=== PATIENT | female | born 1970 | race Caucasian/White ===

== ENCOUNTER 2017-04-02 16:05 | Emergency (ER) | payer OTHER ==
--- NOTE | 2017-04-02 16:39 | EDM.PDOC ---
ED HPI GENERAL MEDICAL PROBLEM - General Chief Complaint: Headache Stated Complaint: MIGRAINE Time Seen by Provider: 04/02/17 16:39 Source of Information: Reports: Patient History Limitations: Reports: No Limitations - History of Present Illness INITIAL COMMENTS - FREE TEXT/NARRATIVE: 46-year-old female presents to the ED in a complement of her with a severe occipital headache. Associated nausea without vomiting. Has had intermittent visual acuity symptoms for the last 2 days with sometimes loss of peripheral vision and scotomata. Headache started more today. Associated nausea without vomiting. She is prone to migraines. She has no trouble walking. She does not feel her balance is off. Denies any recent falls or hits in the head. She was ill over the last week to 10 days with what sounds like influenza for due to high fever headache loss of appetite and paroxysmal cough. She continues to cough at this time. She states it's nonproductive. Has some chills but no further fever. Appetite has been fair up until today. Onset: Gradual Onset Date: 04/01/17 (Headache started overnight.) Duration: Day(s):, Waxing/Waning Location: Reports: Head (Headache primarily occipital skull.), Neck Quality: Reports: Ache, Throbbing Severity: Moderate Improves with: Reports: None, Rest Worsens with: Reports: Other, Movement Context: Reports: Sick Contact ( was ill with influenza.). Denies: Activity (Coughing), Exercise, Lifting, Trauma Associated Symptoms: Reports: Cough, Fever/Chills, Headaches, Malaise ( Nonproductive), Nausea/Vomiting (Nausea without vomiting today with this). Denies: Confusion, Chest Pain, cough w sputum, Diaphoresis (Cold or chills at times with no fever), Loss of Appetite, Rash ( severity of headache), Seizure, Shortness of Breath, Syncope Treatments DIRECTOR MICROBIOLOGY: Reports: Other (see below) (None.) Headache Pain Score (Numeric/FACES): 5 - Related Data Allergies Allergy/AdvReac Type Severity Reaction Status Date / Time metoclopramide [From Reglan] Allergy Other Verified 04/02/17 18:01 sulfacetamide Allergy Respiratory Verified 02/09/17 07:46 Distress levofloxacin AdvReac Other Verified 02/09/17 07:45 Home Meds: Home Meds Albuterol Sulfate 1 applic INH TID 04/02/17 [History] Budesonide [Pulmicort] 1 applic INH DAILY 04/02/17 [History] Cefdinir [Omnicef] 300 mg PO BID 04/02/17 [History] Cetirizine [ZyrTEC] 10 mg PO BEDTIME 04/02/17 [History] Fluticasone Propionate [Flovent] 1 puff INH BID 04/02/17 [History] Montelukast [Singulair] 10 mg PO BEDTIME 04/02/17 [History] Ondansetron HCl [Zofran] 4 mg PO Q8H PRN 04/02/17 [History] SUMAtriptan [Imitrex] 50 mg PO ASDIRECTED PRN 04/02/17 [History] Verapamil [Calan] 120 mg PO BEDTIME 04/02/17 [History] Past Medical History HEENT History: Reports: Other (See Below) Other HEENT History: several sinus surgeries and tube in left ear for drainage Respiratory History: Reports: Asthma, Bronchitis, Recurrent, Other (See Below) Other Respiratory History: seasonal allergies; sinus infection at present on Neurological History: Reports: Migraines - Past Surgical History GI Surgical History: Reports: Cholecystectomy, Other (See Below) Other GI Surgeries/Procedures: hiatal hernia repair Female Surgical History: Reports: Hysterectomy Social & Family History - Tobacco Use Smoking Status *Q: Never Smoker - Caffeine Use Caffeine Use: Reports: None - Recreational Drug Use Recreational Drug Use: No - Living Situation & Occupation Living situation: Reports: Occupation: Employed ED ROS GENERAL - Review of Systems Review Of Systems: See Below Constitutional: Reports: Chills, Malaise, Weakness, Fatigue, Decreased Appetite , Weight Loss. Denies: Fever HEENT: Reports: Contact Lenses, Sinus Problem (Currently on Ceftin ear twice daily for the last 2 days for sinus infection.) Respiratory: Reports: Cough. Denies: Shortness of Breath (Mostly nonproductive. ), Wheezing (Has been using her inhaler 3 times daily.) Cardiovascular: Reports: No Symptoms Endocrine: Reports: Fatigue GI/Abdominal: Reports: Decreased Appetite, Nausea. Denies: Vomiting : Reports: No Symptoms Musculoskeletal: Reports: Neck Pain Skin: Reports: No Symptoms Neurological: Reports: Headache, Other (Visual disturbances were time she will see only half of visual field to create loss of temp peripheral visual field. [place]. No kaleidoscopic vision.). Denies: Syncope, Weakness Psychiatric: Reports: No Symptoms ( Eye symptoms predated headache by 2 days.) Hematologic/Lymphatic: Reports: No Symptoms Immunologic: Reports: No Symptoms - Physical Exam Exam: See Below Exam Limited By: No Limitations General Appearance: Alert, WD/WN, No Apparent Distress Eye Exam: Bilateral Eye: Normal Fundi, Normal Inspection, PERRL Ears: Normal TMs Throat/Mouth: Normal Inspection, Normal Lips, Normal Teeth, Normal Oropharynx Head Exam: Atraumatic, Normocephalic Neck: Normal Inspection, Supple, Non-Tender, Full Range of Motion. No: Lymphadenopathy (L), Lymphadenopathy (R) Respiratory/Chest: No Respiratory Distress, Lungs Clear, Normal Breath Sounds, No Accessory Muscle Use Cardiovascular: Normal Peripheral Pulses, Regular Rate, Rhythm, No Edema, No Murmur GI/Abdominal: Normal Bowel Sounds, Soft, Non-Tender, No Organomegaly, No Abnormal Bruit, No Mass, Pelvis Stable Neuro Exam (Abbreviated): Alert, Oriented, CN II-XII Intact, Normal Cognition, Normal Gait, No Motor/Sensory Deficits, Other (No pronator drift. Normal rapid alternating movements). No: Inattentive, Confused, Disoriented, Memory Loss Remote Events, Memory Loss Recent Events, Abnormal Gait, Abnormal Reflexes Back Exam: Normal Inspection, Full Range of Motion. No: CVA Tenderness (L), CVA Tenderness (R) Extremities: Normal Inspection, Normal Range of Motion, Non-Tender, Normal Capillary Refill Psychiatric: Normal Affect, Normal Mood Skin Exam: Warm, Dry, Intact, Normal Color, No Rash Course - Vital Signs Last Recorded V/S: Last Vital Signs Temp 37.1 C 04/02/17 16:29 Pulse 79 04/02/17 16:29 Resp 20 04/02/17 16:29 BP 156/84 H 04/02/17 16:29 Pulse Ox 100 04/02/17 16:29 - Orders/Labs/Meds Meds: Medications Discontinued Medications Generic Name Dose Route Start Last Admin Trade Name Freq PRN Reason Stop Dose Admin Diphenhydramine HCl 25 mg 04/02/17 16:46 04/02/17 17:19 Benadryl IVPUSH 04/02/17 16:47 25 mg ONETIME ONE Administration Hydromorphone HCl 0.5 mg 04/02/17 16:46 04/02/17 17:19 Dilaudid IVPUSH 04/02/17 16:47 0.5 mg ONETIME ONE Administration Dextrose/Sodium Chloride 1,000 mls @ 999 mls/hr 04/02/17 16:45 04/02/17 17:19 Dextrose 5%-Normal Saline IV 999 mls/hr ASDIRECTED DESIRAE Administration Metoclopramide HCl 7.5 mg 04/02/17 16:46 04/02/17 17:21 Reglan IVPUSH 04/02/17 16:47 Not Given ONETIME ONE - Radiology Interpretation Free Text/Narrative:: 46-year-old female presents the ED with migraine symptoms although rather atypical. She presents with scotomata and change in visual caro off and on for the last 2 days which predates an occipital headache. Associated nausea without vomiting. Neurological exam is completely normal. She appears to be exhibiting signs and symptoms of an atypical migraine. Neuro exam is normal. Plan IV Benadryl 25 mg with Dilaudid 0.5 mg IV and Reglan 7.5 mg IV. IV will be D5 normal saline at open. - Re-Assessments/Exams Free Text/Narrative Re-Assessment/Exam: 04/02/17 18:09: She reports headache is completely gone. She feels slightly drowsy from the medications. She feels she will be able to go home and have his nap. Charge home in care of her . Departure - Departure Time of Disposition: 18:08 Disposition: Home, Self-Care 01 Condition: Fair Clinical Impression: Atypical migraine - Discharge Information Instructions: Migraine Headache, [id number] Referrals: Beronica Johnson PA-C [Primary Care Provider] - Forms: ED Department Discharge Additional Instructions: Evaluation in the emergency department today in regards to atypical migraine headache. By this I mean you develop visual aura and symptoms for developing bad headache with associated nausea. Neurological the you are intact with no signs of nervous system disorder. This strongly suggests migraine headache with atypical symptoms particularly of the eyes. On my assessment of your eyes there are early cataracts present bilaterally. A better examination could be performed by her art museum docent as they will dilate your pupils to allow a better look at your retinas. I would suggest that you have this done sometime in the next few weeks. Today were treated with intravenous Benadryl 25 mg and Dilaudid 0.25 mg IV for headache relief. He refused the Reglan since you have had problems with this medication in the past. We put this down as a potential allergen. Suggest home to rest sleep for the next 2-4 hours and then resume plenty of fluids and diet as able. Continue all medications as prior.
[2017-04-02] MEDS ORDERED: Dextrose 5%-0.9% NaCl 1,000 ML IV SCH (16:45)
[2017-04-02] MEDS ORDERED: diphenhydrAMINE 50 MG/ML SDV IVPUSH ONE (16:46)
[2017-04-02] MEDS ORDERED: Metoclopramide 10 MG/2 ML SDV IVPUSH ONE (16:46)
[2017-04-02] MEDS ORDERED: HYDROmorphone 0.5 MG/0.5 ML SYRINGE IVPUSH ONE (16:46)
== END 2017-04-02 18:25 | disposition home or self-care (01) ==
LOC: JD.ED 16:05
DX: G43.909 Migraine, unspecified, not intractable, without status migrainosus (principal); J45.909 Unspecified asthma, uncomplicated; Z79.899 Other long term (current) drug therapy; Z88.1 Allergy status to other antibiotic agents; Z88.2 Allergy status to sulfonamides; Z88.8 Allergy status to other drugs, medicaments and biological substances
CPT/HCPCS: 96361; 96374; 96375; 99283; J1170; J1200; J7042

== ENCOUNTER 2017-05-30 10:09 | Emergency (ER) | payer OTHER ==
[2017-05-30] MEDS ORDERED: Sodium Chloride 0.9% 10 ML Syringe FLUSH PRN (10:20)
--- NOTE | 2017-05-30 10:42 | EDM.PDOC ---
ED HPI GENERAL MEDICAL PROBLEM - General Chief Complaint: Chest Pain Stated Complaint: [facility] Time Seen by Provider: 05/30/17 10:15 Source of Information: Reports: Patient, EMS History Limitations: Reports: No Limitations - History of Present Illness INITIAL COMMENTS - FREE TEXT/NARRATIVE: The patient presents with mid sternal chest pain. This has been going on for about a week. She has asthma and she was unsure if it was her asthma. He doctor upped some of her meds but that has not been helping. She is short of breath with the pain. She says it is like pressure in the middle of her chest. The pressure is made worse by exertion. She is fatigued. She was at a track meet yesterday and she had to walk up a hill. She needed to rest and catch her breath on the way up. She has no fever, chills, cough, congestion or runny nose. She has no edema or pain in her legs. She has no history of DVT or PE. Her father had an ND in his early 40s. She does not smoke. She has no history of HTN, hypercholesterolemia or diabetes. She does have a history of a rapid heart rate and she is on verapamil for that. She went to the walk in clinic this morning and she got lightheaded and she needed to lay down. 911 was called and paramedics gave her nitro that helped, aspirin and zofran. She was nauseated when they picked her up. Onset: Gradual Duration: Week(s): (1) Location: Reports: Chest Quality: Reports: Pressure Severity: Moderate Improves with: Reports: Rest Worsens with: Reports: Movement Associated Symptoms: Reports: Chest Pain, Shortness of Breath. Denies: Cough, Fever/Chills, Headaches, Nausea/Vomiting Chest Pain Score (Numeric/FACES): 2 - Related Data Allergies Allergy/AdvReac Type Severity Reaction Status Date / Time metoclopramide [From Reglan] Allergy Other Verified 04/02/17 18:01 sulfacetamide Allergy Respiratory Verified 02/09/17 07:46 Distress sulfamethoxazole Allergy Anxiety Verified 05/30/17 10:18 [From Bactrim] trimethoprim [From Bactrim] Allergy Anxiety Verified 05/30/17 10:18 levofloxacin AdvReac Other Verified 02/09/17 07:45 Home Meds: Home Meds Albuterol Sulfate 1 applic INH TID 04/02/17 [History] Budesonide [Pulmicort] 1 applic INH DAILY 04/02/17 [History] Cetirizine [ZyrTEC] 10 mg PO BEDTIME 04/02/17 [History] Fluticasone Propionate [Flovent] 1 puff INH BID 04/02/17 [History] Montelukast [Singulair] 10 mg PO BEDTIME 04/02/17 [History] Ondansetron HCl [Zofran] 4 mg PO Q8H PRN 04/02/17 [History] SUMAtriptan [Imitrex] 50 mg PO ASDIRECTED PRN 04/02/17 [History] Verapamil [Calan] 120 mg PO BEDTIME 04/02/17 [History] Prednisone [IJD: predniSONE] 20 mg PO WITHBREAKFAST #5 tab 05/30/17 [Rx] Triamcinolone Acetonide [Nasacort AQ [place]] 1 spray NASBOTH DAILY 05/30/17 [ History] Past Medical History HEENT History: Reports: Other (See Below) Other HEENT History: several sinus surgeries and tube in left ear for drainage Cardiovascular History: Reports: High Cholesterol Respiratory History: Reports: Asthma, Bronchitis, Recurrent, Other (See Below) Other Respiratory History: seasonal allergies; sinus infection at present on Gastrointestinal History: Reports: Hiatal Hernia 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 Denies: Fever, Chills HEENT: Reports: No Symptoms Respiratory: Reports: Shortness of Breath Cardiovascular: Reports: Chest Pain Endocrine: Reports: Fatigue GI/Abdominal: Reports: No Symptoms : Reports: No Symptoms Musculoskeletal: Reports: No Symptoms ED EXAM, GENERAL - Physical Exam Exam: See Below Exam Limited By: No Limitations General Appearance: Alert, No Apparent Distress Ears: Normal External Exam Nose: Normal Inspection Head: Atraumatic, Normocephalic Neck: Normal Inspection Respiratory/Chest: No Respiratory Distress, Lungs Clear, Normal Breath Sounds Cardiovascular: Regular Rate, Rhythm, No Edema, No Murmur GI/Abdominal: Soft, Non-Tender, No Organomegaly, No Mass Back Exam: Normal Inspection Extremities: Normal Inspection Neurological: Alert, Oriented, No Motor/Sensory Deficits EKG INTERPRETATION EKG Date: 05/30/17 Time: 10:19 Rhythm: NSR Rate (Beats/Min): 77 [place]: Normal P-Wave: Present QRS: Wide (nonspecific intraventriuclar conduction delay) ST-T: Normal QT: Normal EKG Interpretation Comments: Q waves in the anteroseptal leads Course - Vital Signs Last Recorded V/S: Last Vital Signs Temp 98.5 F 05/30/17 10:15 Pulse 94 05/30/17 10:15 Resp 16 05/30/17 10:15 BP 138/85 05/30/17 10:15 Pulse Ox 100 05/30/17 11:47 - Orders/Labs/Meds Orders: Active Orders 24 hr Category Date Time Status Cardiac Monitoring [RC] . DIRECTED Care 05/30/17 10:20 Active EKG Documentation Completion [RC] ASDIRECTED Care 05/30/17 13:02 Active EKG Documentation Completion [RC] STAT Care 05/30/17 10:20 Active Oxygen Therapy [RC] PRN Care 05/30/17 10:20 Active Peripheral IV Care [RC] . DIRECTED Care 05/30/17 10:20 Active RT Aerosol Therapy [RC] ASDIRECTED Care 05/30/17 11:47 Active Sodium Chloride 0.9% [Saline Flush] Med 05/30/17 10:20 Active 10 ml FLUSH ASDIRECTED PRN Peripheral IV Insertion Adult [OM.PC] Stat Oth 05/30/17 10:20 Ordered EKG 12 Lead [EK] Stat Ther 05/30/17 13:01 Ordered Medication Orders Sodium Chloride (Saline Flush) 10 ml FLUSH ASDIRECTED PRN PRN Reason: Keep Vein Open Last Admin: 05/30/17 10:25 Dose: 10 ml Labs: Laboratory Tests 05/30/17 05/30/17 05/30/17 Range/Units 10:28 10:28 10:28 WBC 3.56 L (3.98-10.04) K/mm3 RBC 4.82 (3.98-5.22) M/mm3 Hgb 14.0 (11.2-15.7) gm/L Hct 41.8 (34.1-44.9) % MCV 86.7 (79.4-94.8) fl MCH 29.0 (25.6-32.2) pg MCHC 33.5 (32.2-35.5) g/dl RDW Std Deviation 37.5 (36.4-46.3) fL Plt Count 236 (182-369) K/mm3 MPV 9.2 L (9.4-12.3) fl Neut % (Auto) 59.4 (34.0-71.1) % Lymph % (Auto) 30.1 (19.3-51.7) % [place] % (Auto) 9.0 (4.7-12.5) % Eos % (Auto) 0.6 L (0.7-5.8) Baso % (Auto) 0.6 (0.1-1.2) % Neut # (Auto) 2.12 (1.56-6.13) K/mm3 Lymph # (Auto) 1.07 L (1.18-3.74) K/mm3 [place] # (Auto) 0.32 (0.24-0.36) K/mm3 Eos # (Auto) 0.02 L (0.04-0.36) K/mm3 Baso # (Auto) 0.02 (0.01-0.08) K/mm3 D-Dimer, Quantitative < 0.19 L (0.19-0.50) mg/L Sodium 141 (136-145) mEq/L Potassium 4.2 (3.5-5.1) mEq/L Chloride 107 (98-107) mEq/L Carbon Dioxide 25 (21-32) mEq/L Anion Gap 13.2 (5-15) BUN 16 (7-18) mg/dL Creatinine 1.0 (0.55-1.02) mg/dL Est Cr Clr Drug Dosing 69.09 mL/min Estimated GFR (MDRD) 60 (>60) mL/min BUN/Creatinine Ratio 16.0 (14-18) Glucose 117 H (74-106) mg/dL Calcium 8.8 (8.5-10.1) mg/dL Total Bilirubin 0.7 (0.2-1.0) mg/dL AST 20 (15-37) U/L ALT 27 (14-59) U/L Alkaline Phosphatase 41 L (46-116) U/L Troponin I < 0.017 (0.00-0.056) ng/mL Total Protein 6.8 (6.4-8.2) g/dl Albumin 4.1 (3.4-5.0) g/dl Globulin 2.7 gm/dL Albumin/Globulin Ratio 1.5 (1-2) 05/30/17 Range/Units 13:13 WBC (3.98-10.04) K/mm3 RBC (3.98-5.22) M/mm3 Hgb (11.2-15.7) gm/L Hct (34.1-44.9) % MCV (79.4-94.8) fl MCH (25.6-32.2) pg MCHC (32.2-35.5) g/dl RDW Std Deviation (36.4-46.3) fL Plt Count (182-369) K/mm3 MPV (9.4-12.3) fl Neut % (Auto) (34.0-71.1) % Lymph % (Auto) (19.3-51.7) % [place] % (Auto) (4.7-12.5) % Eos % (Auto) (0.7-5.8) Baso % (Auto) (0.1-1.2) % Neut # (Auto) (1.56-6.13) K/mm3 Lymph # (Auto) (1.18-3.74) K/mm3 [place] # (Auto) (0.24-0.36) K/mm3 Eos # (Auto) (0.04-0.36) K/mm3 Baso # (Auto) (0.01-0.08) K/mm3 D-Dimer, Quantitative (0.19-0.50) mg/L Sodium (136-145) mEq/L Potassium (3.5-5.1) mEq/L Chloride (98-107) mEq/L Carbon Dioxide (21-32) mEq/L Anion Gap (5-15) BUN (7-18) mg/dL Creatinine (0.55-1.02) mg/dL Est Cr Clr Drug Dosing mL/min Estimated GFR (MDRD) (>60) mL/min BUN/Creatinine Ratio (14-18) Glucose (74-106) mg/dL Calcium (8.5-10.1) mg/dL Total Bilirubin (0.2-1.0) mg/dL AST (15-37) U/L ALT (14-59) U/L Alkaline Phosphatase (46-116) U/L Troponin I < 0.017 (0.00-0.056) ng/mL Total Protein (6.4-8.2) g/dl Albumin (3.4-5.0) g/dl Globulin gm/dL Albumin/Globulin Ratio (1-2) Meds: Medications Generic Name Dose Route Start Last Admin Trade Name Freq PRN Reason Stop Dose Admin Sodium Chloride 10 ml 05/30/17 10:20 05/30/17 10:25 Saline Flush FLUSH 10 ml ASDIRECTED PRN Administration Keep Vein Open Discontinued Medications Generic Name Dose Route Start Last Admin Trade Name Freq PRN Reason Stop Dose Admin Albuterol/Ipratropium 3 ml 05/30/17 11:47 05/30/17 11:55 Duoneb 3.0-0.5 Mg/3 Ml NEB 05/30/17 11:48 3 ml ONETIME ONE Administration - Re-Assessments/Exams Free Text/Narrative Re-Assessment/Exam: 05/30/17 13:23 I ordered an IV saline lock, labs, EKG, and CXR. Her EKG shows a NSR with a nonsepcific intraventricular conduction delay. There is some Q waves in the anteroseptal leads. Her CBC and CMP looks good. Her D-dimer was negative. Her troponin was negative. Her CXR shows a small nodule in the right upper lung. Dr Lee recommended a noncontrast CT be done. The CT showed a small right upper lobe scar, no pulmonary nodule is seen, and nothing acute is seen on CT study of the chest. I have ordered a repeat troponin and her repeat EKG shows no change from prior. 05/30/17 13:28 I did order a duoneb and she feels better with that. 05/30/17 13:51 Her repeat EKG and troponin are negative. I will get her on some prednisone and I ordered a stress test for Marge in the morning. They will call her with a time. Departure - Departure Time of Disposition: 13:55 Disposition: Home, Self-Care 01 Condition: Good Clinical Impression: Atypical chest pain Asthma Qualifiers: Asthma severity: moderate Asthma persistence: persistent Asthma complication type: with acute exacerbation Qualified Code(s): J45.41 - Moderate persistent asthma with (acute) exacerbation Prescriptions: Prednisone [IJD: predniSONE] 20 mg PO WITHBREAKFAST #5 tab Referrals: Beronica Johnson PA-C [Primary Care Provider] - 1 Week Forms: ED Department Discharge Additional Instructions: Take the prednisone daily for 5 days. Do not take your verapamil or caffeine 24 hours before the stress test. Take your other medication as prescribed. I have scheduled a stress test for you on Wednesday. Our radiology department will call you with a times. Please return if you are worse. - My Orders Last 24 Hours: My Active Orders 05/30/17 10:20 Cardiac Monitoring [RC] . DIRECTED EKG Documentation Completion [RC] STAT Oxygen Therapy [RC] PRN Peripheral IV Care [RC] . DIRECTED Sodium Chloride 0.9% [Saline Flush] 10 ml FLUSH ASDIRECTED PRN Peripheral IV Insertion Adult [OM.PC] Stat 05/30/17 11:47 RT Aerosol Therapy [RC] ASDIRECTED 05/30/17 13:01 EKG 12 Lead [EK] Stat 05/30/17 13:02 EKG Documentation Completion [RC] ASDIRECTED - Assessment/Plan Last 24 Hours: My Active Orders 05/30/17 10:20 Cardiac Monitoring [RC] . DIRECTED EKG Documentation Completion [RC] STAT Oxygen Therapy [RC] PRN Peripheral IV Care [RC] . DIRECTED Sodium Chloride 0.9% [Saline Flush] 10 ml FLUSH ASDIRECTED PRN Peripheral IV Insertion Adult [OM.PC] Stat 05/30/17 11:47 RT Aerosol Therapy [RC] ASDIRECTED 05/30/17 13:01 EKG 12 Lead [EK] Stat 05/30/17 13:02 EKG Documentation Completion [RC] ASDIRECTED
--- NOTE | 2017-05-30 11:26 | CR ---
Chest: Frontal view of the chest was obtained. Comparison: Prior chest x-ray of 03/09/09. Heart size and mediastinum are normal. Nodule is identified within the upper right lung. This is not seen on prior study with certainty. Lungs otherwise are clear. Bony structures are unremarkable. Impression: 1. Small nodule within the right upper lung most likely representing interval granuloma although a noncontrast chest CT recommended to confirm. 2. Nothing acute is otherwise seen. Diagnostic code #9
[2017-05-30] MEDS ORDERED: Albuterol/Ipratropium 3.0-0.5 MG/3 ML Neb Soln NEB ONE (11:47)
--- NOTE | 2017-05-30 12:22 | CT ---
CT chest Technique: Multiple axial sections through the chest were obtained. Intravenous contrast was not utilized. Comparison: Prior chest x-ray performed earlier on the same date (10:39 AM) Findings: Small scar is noted within the right upper lung adjacent to the pleura. No pulmonary nodule is otherwise seen. Mediastinum and hilar region show no adenopathy or mass. No coronary artery calcification is seen. No pericardial thickening is identified. No axillary adenopathy is seen. Previous cholecystectomy is noted. Visualized upper abdominal structures are otherwise unremarkable. Bone window settings were reviewed which appear within normal limits for the patient's age. Impression: 1. Small right upper lobe scar. 2. No pulmonary nodule is seen. 3. Nothing acute is seen on CT study of the chest. Diagnostic code #2
== END 2017-05-30 14:05 | disposition home or self-care (01) ==
LOC: JD.ED 10:09
DX: J45.41 Moderate persistent asthma with (acute) exacerbation (principal); R07.89 Other chest pain; E78.00 Pure hypercholesterolemia, unspecified; Z88.8 Allergy status to other drugs, medicaments and biological substances; Z88.2 Allergy status to sulfonamides; Z88.1 Allergy status to other antibiotic agents; Z79.899 Other long term (current) drug therapy
CPT/HCPCS: 36415; 71045; 71250; 80053; 84484; 85025; 85379; 93005; 94640; 99285; J7050